=== PATIENT | female | born 1950 | race African-American/Black ===

== ENCOUNTER → 2017-03-14 | Outpatient (CLI) | payer BC, MEDICARE, OTHER ==
[2016-01-29 22:25] VITALS: BP 140/68
[~2017-03-14] MED LIST: OFLO5DRO4 OS
--- NOTE | 2017-03-15 10:03 | RAD ---
DATE: 03/14/2017 EXAM: MAMMO GEOVANI SCREENING BILATERAL HISTORY: Screening. 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 COMPARISON: One year earlier FINDINGS: Breast Density: SCATTERED The breast parenchyma shows scattered fibroglandular densities. Breast parenchyma level B. The left breast is unremarkable and unchanged. The reconstructed right breast is unremarkable. IMPRESSION: Benign finding BI-RADS CATEGORY: 2 BENIGN FINDING(S) RECOMMENDED FOLLOW-UP: 12M 12 MONTH FOLLOW-UP PQRS compliance statement: Patient information was entered into a reminder system with a target due date 03/14/2018 for the next mammogram. Mammography is a sensitive method for finding small breast cancers, but it does not detect them all and is not a substitute for careful clinical examination. A negative mammogram does not negate a clinically suspicious finding and should not result in delay in biopsying a clinically suspicious abnormality. "Our facility is accredited by the [employer] Mammography [employer]."
== END | disposition home or self-care (01) ==
LOC: KCIC MAMMO 10:46
PROVIDERS: ATTEND Family Medicine
DX: Z12.31 Encounter for screening mammogram for malignant neoplasm of breast (principal)
CPT/HCPCS: 77063; G0202; 77067

== ENCOUNTER → 2020-05-05 | Outpatient (CLI) | payer BC ==
[2016-01-29 22:25] VITALS: BP 140/68
--- NOTE | 2020-05-05 17:37 | KCIC ---
Bilateral digital screening mammograms with 3-D tomosynthesis: Reason for examination: Routine screening. History of right radical mastectomy with TRAM flap reconstruction in 1998. Comparison is made to previous studies dated back to 10/28/2013. Bilateral mammograms in CC and oblique projections were obtained with 2-D imaging and 3-D tomosynthesis imaging on a Siemens Inspiration unit and reviewed on the workstation. Interpretation was made with the benefit of CAD. The reconstructed right breast shows no new focal abnormalities. The skin and of the left breast show no new abnormalities. No abnormal axillary lymph nodes are seen. The breast parenchyma is predominantly fatty. (Breast density: Category A.) There continues to be a nodular parenchymal density in the 1:00 B position of the left breast which contains some punctate calcifications and has not changed. There is however a new clustered calcifications present medially at approximately the central 9:00 position 11.5 cm from the nipple. Further evaluation with coned magnification views is recommended. There are no other dominant masses, suspicious calcifications or architectural distortion. Benign calcifications are present. Impression: Small new cluster of calcifications at approximately the 9:00 position centrally in the left breast 11.5 cm from the nipple. Recommend further evaluation with coned magnification views. No other interval change in the examination. BI-RADS Category 0: Incomplete. Needs additional imaging evaluation "Our facility is accredited by the [employer]ammography [employer]." This patient's information has been entered into a reminder system for the patient to be notified with the results of her examination and a target date for the next mammogram. Electronically signed by: Giovanna Ritter MD (05/05/2020 5:35 PM) [email or web address]
== END ==
LOC: KCIC MAMMO 15:10
PROVIDERS: ATTEND Family Medicine
DX: Z12.31 Encounter for screening mammogram for malignant neoplasm of breast (principal); N64.89 Other specified disorders of breast
CPT/HCPCS: 77063; 77067

== ENCOUNTER → 2020-06-15 | Outpatient (CLI) | payer BC ==
[2016-01-29 22:25] VITALS: BP 140/68
--- NOTE | 2020-06-15 13:29 | RAD ---
Examination: MG DIAGNOSTICUNILAT MAMMO History: Reason: CALLBACK ABNORMAL MAMMOGRAM / Spl. Instructions: / History: Comparison/Correlation: 05/05/2020, 03/14/2017, 03/13/2016 TECHNIQUE: Diagnostic digital images of left breast are obtained for evaluation. This includes spot m agnification imaging. Computer aided detection was applied. BREAST PARENCHYMAL DENSITY: B. Scattered fibroglandular densities are present. FINDINGS: No suspicious calcifications identified on the spot magnification images or on the mediolat eral view obtained. IMPRESSION: BI-RADS Category 1-negative. Annual mammography recommended. Note is made that dense breast parenchyma limits the sensitivity of mammography. Mammography is a sen sitive method for finding small breast cancers, but it does not detect them all and is not a substitu te for careful clinical examination. A negative mammogram does not negate a clinically suspicious fi nding and should not result in delay in biopsying a clinically suspicious abnormality. PQRS compliance statement - Patient information was entered into a reminder system with a target due date for the next mammogram. "Our facility is accreditied by the [employer]ammography [employer]." Electronically signed by: Ed Lagunas MD (06/15/2020 1:27 PM) [id number]
== END ==
LOC: MAMMO 12:10
PROVIDERS: ATTEND Family Medicine
DX: R92.8 Other abnormal and inconclusive findings on diagnostic imaging of breast (principal)
CPT/HCPCS: 77065

== ENCOUNTER → 2021-10-24 | Outpatient (CLI) | payer BC ==
[2016-01-29 22:25] VITALS: BP 140/68
--- NOTE | 2021-10-24 15:03 | KCIC ---
EXAM: Bilateral digital screening mammogram with tomosynthesis. HISTORY: 71-year-old female presents for screening mammography. The patient has a history of right br east mastectomy and trans flap reconstruction. TECHNIQUE: Full-field digital craniocaudal and mediolateral oblique 2D and 3D tomosynthesis images of both breasts are obtained for evaluation. Computer aided detection was applied. COMPARISON: 06/15/2020, 05/05/2020, 03/14/2017 BREAST PARENCHYMAL DENSITY: Level B - Scattered fibroglandular densities. FINDINGS: There are stable findings consistent with right mastectomy and right chest wall reconstruct ion. There is stable nodularity within the 12:00 position of the left breast at mid depth. There are benign calcifications, including increasingly coarse calcifications at the posterior 9:00 position of the left breast. There is a stable left axillary tail lymph node. IMPRESSION: BI-RADS Category 2: Benign finding(s). RECOMMENDATION: Annual mammography is recommended. If your mammogram demonstrates that you have dense breast tissue, which could hide abnormalities, and if you have other risk factors for breast cancer that have been identified, you might benefit from s upplemental screening tests that may be suggested by your ordering physician. Dense breast tissue, i n and of itself, is a relatively common condition. This information is not provided to cause undue c oncern, but rather to raise your awareness and to promote discussion with your physician regarding th e presence of other risk factors, in addition to dense breast tissue. A report of your mammography re sults will be sent to you and your physician. You should contact your physician if you have any ques tions or concerns regarding this report. Mammography is a sensitive method for finding small breast cancers, but it does not detect them all a nd is not a substitute for careful clinical examination. A negative mammogram does not negate a clin ically suspicious finding and should not result in delay in biopsying a clinically suspicious abnorma lity. PQRS compliance statement - Patient information was entered into a reminder system with a target due date for the next mammogram. "Our facility is accredited by the [employer] Mammography [employer]." Electronically signed by: Elayne Inman MD (10/24/2021 3:01 PM) [email or web address]
== END ==
LOC: KCIC MAMMO 12:35
PROVIDERS: ATTEND Family Medicine
DX: Z12.31 Encounter for screening mammogram for malignant neoplasm of breast (principal)
CPT/HCPCS: 77063; 77067